=== PATIENT | male | born 1980 | race Caucasian/White ===

== ENCOUNTER 2017-06-29 15:08 | Emergency (ER) | payer OTHER | END 2017-06-29 16:30 | disposition home or self-care (01) | LOC: D.ER 15:08 | DX: L03.116 Cellulitis of left lower limb (principal); L03.115 Cellulitis of right lower limb ==

== ENCOUNTER 2017-10-06 17:30 | Emergency (ER) | payer OTHER ==
[2017-10-06 17:55] LABS: APPEARANCE CLEAR (CLEAR); BILIRUBIN NEGATIVE (NEGATIVE); COLOR YELLOW (YELLOW); GLUCOSE NEGATIVE (NEGATIVE); KETONE SMALL mg/dL (NEGATIVE); NITRITE NEGATIVE (NEGATIVE); PROTEIN NEGATIVE (NEGATIVE); SPECIFIC GRAVITY 1.015 (1.005-1.020); UROBILINOGEN NORMAL (NORMAL)
[2017-10-06 17:58] LABS: BACTERIA FEW /hpf (NONE SEEN); RED CELLS - URINE 0-5 /hpf (0-5)
== END 2017-10-06 19:35 | disposition home or self-care (01) ==
LOC: D.ER 17:30 → EDBD 17:30 → D.ER 19:35
PROVIDERS: Family Medicine
DX: N39.0 Urinary tract infection, site not specified (principal); N45.1 Epididymitis

== ENCOUNTER 2017-11-29 06:29 | Emergency (ER) | payer OTHER ==
[2017-11-29 07:07] LABS: BASOPHILS 0.2 % (0-2); EOSINOPHILS 0.1 % (0-7); HEMATOCRIT 50.4 % (42.0-54.0); HEMOGLOBIN 17.7 g/dL (13.5-17.5); IMMATURE GRANULOCYTES 0.2 % (0-5); LYMPHOCYTES 18.7 % (15-50); MCH 31.1 pg (26.0-34.0); MCHC 35.1 g/dL (31.0-37.0); MCV 88.4 fL (80.0-100.0); MEAN PLATELET VOLUME 10.1 fL (7.4-10.4); MONOCYTES 13.2 % (2-11); NEUTROPHILS 67.6 % (40-80); PLATELET COUNT 300 10x3/uL (130-400); RDW 14.2 % (11.5-14.5); WBC 9.8 10x3/uL (4.8-10.8)
[2017-11-29 07:32] LABS: ALBUMIN 4.7 g/dL (3.4-5.0); ALKALINE PHOSPHATASE 50 U/L (46-116); ALT (SGPT) 94 U/L (10-68); CALC OSMOLALITY 286 mosm/kg (275-300); CALCIUM 9.5 mg/dL (8.5-10.1); CARBON DIOXIDE 26.9 mmol/L (21.0-32.0); CHLORIDE - SERUM 104 mmol/L (98-107); CREATININE - SERUM 1.2 mg/dL (0.6-1.3); GLUCOSE 125 mg/dL (74-106); POTASSIUM - SERUM 3.9 mmol/L (3.5-5.1); PROTEIN - SERUM 8.4 g/dL (6.4-8.2); SODIUM 143 mmol/L (136-145); UREA NITROGEN 15 mg/dL (7-18); eGFR NON AFRICAN AMERICAN 72 mL/min (90-120)
[2017-11-29 07:43] LABS: CKMB 4.8 U/L (0.0-3.6); CREATINE KINASE 792 UL (21-232); TROPONIN-I < 0.017 ng/mL (0.000-0.060)
== END 2017-11-29 11:43 | disposition short-term general hospital (02) ==
LOC: EDBD 06:29 → D.ER 06:29
PROVIDERS: Family Medicine
DX: F15.90 Other stimulant use, unspecified, uncomplicated (principal); F41.9 Anxiety disorder, unspecified; F23 Brief psychotic disorder

== ENCOUNTER 2017-12-20 09:26 | Emergency (ER) | payer OTHER ==
[2017-12-20 11:04] LABS: BASOPHILS 0.4 % (0-2); EOSINOPHILS 1.9 % (0-7); IMMATURE GRANULOCYTES 0.1 % (0-5); MCH 30.4 pg (26.0-34.0); MCHC 35.6 g/dL (31.0-37.0); MCV 85.4 fL (80.0-100.0); MEAN PLATELET VOLUME 9.9 fL (7.4-10.4); MONOCYTES 9.9 % (2-11); NEUTROPHILS 57.7 % (40-80); PLATELET COUNT 223 10x3/uL (130-400); RBC 5.27 10x6/uL (4.20-6.10); RDW 12.6 % (11.5-14.5)
[2017-12-20 11:07] LABS: ALBUMIN 4.2 g/dL (3.4-5.0); ALKALINE PHOSPHATASE 50 U/L (46-116); ALT (SGPT) 55 U/L (10-68); BILIRUBIN - TOTAL 1.53 mg/dL (0.2-1.3); CALC OSMOLALITY 276 mosm/kg (275-300); CALCIUM 8.6 mg/dL (8.5-10.1); CARBON DIOXIDE 23.3 mmol/L (21.0-32.0); CHLORIDE - SERUM 103 mmol/L (98-107); CREATININE - SERUM 0.9 mg/dL (0.6-1.3); GLUCOSE 103 mg/dL (74-106); POTASSIUM - SERUM 3.3 mmol/L (3.5-5.1); PROTEIN - SERUM 7.7 g/dL (6.4-8.2); SODIUM 137 mmol/L (136-145); UREA NITROGEN 20 mg/dL (7-18); eGFR NON AFRICAN AMERICAN > 90 mL/min (90-120)
[2017-12-20 11:44] LABS: APPEARANCE CLEAR (CLEAR); COLOR YELLOW (YELLOW); GLUCOSE NEGATIVE (NEGATIVE); NITRITE NEGATIVE (NEGATIVE); PROTEIN NEGATIVE (NEGATIVE); SPECIFIC GRAVITY 1.025 (1.005-1.020)
[2017-12-20 11:45] LABS: BILIRUBIN NEGATIVE (NEGATIVE); KETONE SMALL mg/dL (NEGATIVE); UROBILINOGEN NORMAL (NORMAL)
[2017-12-20 11:46] LABS: UDS - AMPHET POSITIVE QUAL (NEGATIVE); UDS - BARB NEGATIVE QUAL (NEGATIVE); UDS - BENZO POSITIVE QUAL (NEGATIVE); UDS - COCAINE POSITIVE QUAL (NEGATIVE); UDS - OPIATE NEGATIVE QUAL (NEGATIVE); UDS - PCP NEGATIVE QUAL (NEGATIVE); UDS - THC NEGATIVE QUAL (NEGATIVE)
== END 2017-12-20 13:14 | disposition short-term general hospital (02) ==
LOC: D.ER 09:26
PROVIDERS: Emergency Medicine
DX: F23 Brief psychotic disorder (principal); E05.00 Thyrotoxicosis with diffuse goiter without thyrotoxic crisis or storm; F43.10 Post-traumatic stress disorder, unspecified; X58.XXXA Exposure to other specified factors, initial encounter; Y93.89 Activity, other specified; Y92.019 Unspecified place in single-family (private) house as the place of occurrence of the external cause; F15.90 Other stimulant use, unspecified, uncomplicated

== ENCOUNTER 2018-02-02 12:35 | Observation (INO) | payer OTHER ==
[~2018-02-02] VITALS: Ht 167.6 cm; Wt 100.5 kg
--- NOTE | ~2018-02-02 | HP ---
PATIENT: JHONATAN OPRRAS MEDICAL RECORD: [id number] ACCOUNT: [id number] LOCATION:D[facility] : 78 ADMISSION DATE: 02/02/18 HISTORY AND PHYSICAL EXAMINATION DATE OF ADMISSION: 02/02/2018 HISTORY: This is a 37-year-old white male who presented to the Emergency Department with altered mental status. He reportedly is a suffering from posttraumatic stress disorder and he took some methamphetamine. He has been a meth user for years and reportedly stopped couple years ago, but fell off the wagon maybe a couple of months ago. This last overdose reportedly caused him to have flashbacks and paranoid behavior. He also took a friend's Klonopin, he states. He has involuntary movements of his body and face. He is admitted for observation. PAST MEDICAL HISTORY: Posttraumatic stress disorder. PAST SURGICAL HISTORY: None. FAMILY HISTORY: Unknown. SOCIAL HISTORY: The patient states he lives alone. DRUG ALLERGIES: None. CURRENT MEDICATIONS: None. HABITS: Former smoker ____ methamphetamine user. Denies alcohol. REVIEW OF SYSTEMS: GENERAL: No major weight changes. HEENT: No particular sinus or allergy problems. RESPIRATORY: No history of emphysema or asthma. CARDIAC: No history of coronary disease. GI: No diarrhea, constipation, or reflux. : No significant problems there. MUSCULOSKELETAL: No significant problems there. NEUROLOGIC: No seizures. No migraine headaches. PSYCH: He has posttraumatic stress disorder. He states he was last seen at the [place] months ago. PHYSICAL EXAMINATION: VITAL SIGNS: Temperature 97.6, pulse 120s, respirations 18, blood pressure 150/75. GENERAL: He is arousable and will answer questions. When he is aroused and awake, he does have involuntary movements of arms, legs, and face. HEENT: Unremarkable. NECK: Supple. HEART: Tachycardia without murmur. LUNGS: Clear. ABDOMEN: Soft, flat, nontender. EXTREMITIES: No edema. NEUROLOGIC: He is drowsy, easily awakened. When he is sleeping, he has no involuntary movements. When he is awake, he has these involuntary movements. HISTORY AND PHYSICAL [id number] JHONATAN PORRAS Urine drug screen positive for amphetamines and benzodiazepine. Urinalysis is unremarkable except specific gravity is 1.025. CBC is normal. Basic metabolic panel okay except potassium low at 3.1. Liver functions are okay. CK elevated at 1029, CK-MB barely elevated at 4.3. Alcohol level is normal. EKG: Sinus tachycardia, rate 129. ASSESSMENT: 1. Amphetamine overdose. 2. Altered mental status due to amphetamine overdose. 3. Hypokalemia. PLAN: Monitor in the ICU. Replace potassium. Give IV fluids. We will follow up next day and see how he is doing. TRANSINT:[id number] Voice Confirmation ID: [id number] DOCUMENT ID: [id number] PHUONG BARBOSA MD at 0809 CC: [id number] DICTATION DATE: 02/03/18 1135 PLATE HANGER: 02/03/18 1331 ADM IN [facility] [address] [id number]
[2018-02-02 13:30] LABS: BASOPHILS 0.3 % (0-2); EOSINOPHILS 1.1 % (0-7); HEMOGLOBIN 15.3 g/dL (13.5-17.5); IMMATURE GRANULOCYTES 0.2 % (0-5); LYMPHOCYTES 24.4 % (15-50); MCH 31.4 pg (26.0-34.0); MCHC 35.6 g/dL (31.0-37.0); MCV 88.3 fL (80.0-100.0); MEAN PLATELET VOLUME 9.4 fL (7.4-10.4); MONOCYTES 9.8 % (2-11); NEUTROPHILS 64.2 % (40-80); PLATELET COUNT 213 10x3/uL (130-400); RBC 4.87 10x6/uL (4.20-6.10); RDW 13.7 % (11.5-14.5); WBC 6.4 10x3/uL (4.8-10.8)
[2018-02-02 13:43] LABS: ALBUMIN 3.9 g/dL (3.4-5.0); ALKALINE PHOSPHATASE 50 U/L (46-116); ALT (SGPT) 61 U/L (10-68); BILIRUBIN - TOTAL 0.71 mg/dL (0.2-1.3); CALC OSMOLALITY 279 mosm/kg (275-300); CALCIUM 8.2 mg/dL (8.5-10.1); CARBON DIOXIDE 23.1 mmol/L (21.0-32.0); CHLORIDE - SERUM 103 mmol/L (98-107); CREATININE - SERUM 0.9 mg/dL (0.6-1.3); GLUCOSE 101 mg/dL (74-106); POTASSIUM - SERUM 3.1 mmol/L (3.5-5.1); PROTEIN - SERUM 7.3 g/dL (6.4-8.2); SODIUM 140 mmol/L (136-145); UREA NITROGEN 15 mg/dL (7-18); eGFR NON AFRICAN AMERICAN > 90 mL/min (90-120)
[2018-02-02 14:16] LABS: CKMB 4.3 U/L (0.0-3.6); CREATINE KINASE 1029 UL (21-232)
[2018-02-02 16:54] LABS: APPEARANCE HAZY (CLEAR); BILIRUBIN NEGATIVE (NEGATIVE); COLOR YELLOW (YELLOW); GLUCOSE NEGATIVE (NEGATIVE); KETONE SMALL mg/dL (NEGATIVE); NITRITE NEGATIVE (NEGATIVE); PROTEIN NEGATIVE (NEGATIVE); SPECIFIC GRAVITY 1.025 (1.005-1.020); UROBILINOGEN NORMAL (NORMAL)
[2018-02-02 17:18] LABS: UDS - AMPHET POSITIVE QUAL (NEGATIVE); UDS - BARB NEGATIVE QUAL (NEGATIVE); UDS - BENZO POSITIVE QUAL (NEGATIVE); UDS - COCAINE NEGATIVE QUAL (NEGATIVE); UDS - OPIATE NEGATIVE QUAL (NEGATIVE); UDS - PCP NEGATIVE QUAL (NEGATIVE); UDS - THC NEGATIVE QUAL (NEGATIVE)
[2018-02-02 19:00] VITALS: BP 122/87
[2018-02-02 19:36] VITALS: BP 116/82; Ht 167.6 cm; Wt 100.5 kg
[2018-02-02 20:00] VITALS: BP 131/97
[2018-02-02 21:00] VITALS: BP 127/91
[2018-02-02 22:00] VITALS: BP 147/96
[2018-02-02 23:00] VITALS: BP 132/85
[2018-02-03] VITALS (15 sets, daily range): BP systolic 113–160; BP diastolic 68–98
[2018-02-03 03:50] LABS: BASOPHILS 0.3 % (0-2); EOSINOPHILS 2.6 % (0-7); HEMATOCRIT 41.9 % (42.0-54.0); HEMOGLOBIN 14.6 g/dL (13.5-17.5); IMMATURE GRANULOCYTES 0.2 % (0-5); LYMPHOCYTES 36.3 % (15-50); MCH 31.1 pg (26.0-34.0); MCHC 34.8 g/dL (31.0-37.0); MCV 89.1 fL (80.0-100.0); MEAN PLATELET VOLUME 9.7 fL (7.4-10.4); MONOCYTES 11.7 % (2-11); NEUTROPHILS 48.9 % (40-80); PLATELET COUNT 203 10x3/uL (130-400); RDW 13.8 % (11.5-14.5); WBC 5.8 10x3/uL (4.8-10.8)
[2018-02-03 04:28] LABS: ALBUMIN 3.4 g/dL (3.4-5.0); ALKALINE PHOSPHATASE 43 U/L (46-116); ALT (SGPT) 51 U/L (10-68); BILIRUBIN - TOTAL 1.01 mg/dL (0.2-1.3); CALC OSMOLALITY 277 mosm/kg (275-300); CALCIUM 7.9 mg/dL (8.5-10.1); CARBON DIOXIDE 23.7 mmol/L (21.0-32.0); CHLORIDE - SERUM 105 mmol/L (98-107); CREATININE - SERUM 0.8 mg/dL (0.6-1.3); GLUCOSE 89 mg/dL (74-106); MAGNESIUM - SERUM 2.3 mg/dL (1.8-2.4); PROTEIN - SERUM 6.6 g/dL (6.4-8.2); SODIUM 140 mmol/L (136-145); UREA NITROGEN 13 mg/dL (7-18); eGFR NON AFRICAN AMERICAN > 90 mL/min (90-120)
[2018-02-03 04:35] LABS: CREATINE KINASE 398 UL (21-232)
[2018-02-03 04:36] LABS: CKMB 2.7 U/L (0.0-3.6)
[2018-02-04 04:05] VITALS: BP 122/71
[2018-02-04 07:54] VITALS: BP 133/82
== END 2018-02-04 09:46 | disposition home or self-care (01) ==
LOC: D.ER 12:35 → OBSVTIME 14:31 → D.EDHOLD 14:31 → D.ICU 17:14 → D.MS 02-03 13:18
PROVIDERS: Family Medicine
DX: T43.621A Poisoning by amphetamines, accidental (unintentional), initial encounter (principal); R41.82 Altered mental status, unspecified; F43.10 Post-traumatic stress disorder, unspecified; E87.6 Hypokalemia; Z87.891 Personal history of nicotine dependence; F15.90 Other stimulant use, unspecified, uncomplicated

== ENCOUNTER 2018-02-16 10:23 | Emergency (ER) | payer OTHER ==
[2018-02-02 19:36] VITALS: BMI 35.7
[2018-02-16 10:58] LABS: BASOPHILS 0.2 % (0-2); EOSINOPHILS 0.7 % (0-7); HEMATOCRIT 49.4 % (42.0-54.0); HEMOGLOBIN 17.6 g/dL (13.5-17.5); IMMATURE GRANULOCYTES 0.1 % (0-5); LYMPHOCYTES 30.3 % (15-50); MCH 31.7 pg (26.0-34.0); MCHC 35.6 g/dL (31.0-37.0); MEAN PLATELET VOLUME 9.7 fL (7.4-10.4); MONOCYTES 10.2 % (2-11); NEUTROPHILS 58.5 % (40-80); PLATELET COUNT 292 10x3/uL (130-400); RBC 5.55 10x6/uL (4.20-6.10); RDW 13.7 % (11.5-14.5)
[2018-02-16 11:26] LABS: ALBUMIN 4.4 g/dL (3.4-5.0); ALKALINE PHOSPHATASE 68 U/L (46-116); ALT (SGPT) 58 U/L (10-68); BILIRUBIN - TOTAL 0.96 mg/dL (0.2-1.3); CALC OSMOLALITY 278 mosm/kg (275-300); CALCIUM 9.3 mg/dL (8.5-10.1); CARBON DIOXIDE 23.6 mmol/L (21.0-32.0); CHLORIDE - SERUM 101 mmol/L (98-107); GLUCOSE 118 mg/dL (74-106); POTASSIUM - SERUM 3.4 mmol/L (3.5-5.1); PROTEIN - SERUM 8.5 g/dL (6.4-8.2); SODIUM 139 mmol/L (136-145); UREA NITROGEN 13 mg/dL (7-18); eGFR NON AFRICAN AMERICAN 89 mL/min (90-120)
[2018-02-16 11:37] LABS: CKMB 1.5 U/L (0.0-3.6); CREATINE KINASE 177 UL (21-232); TROPONIN-I < 0.017 ng/mL (0.000-0.060)
[2018-02-16 12:16] LABS: UDS - AMPHET POSITIVE QUAL (NEGATIVE); UDS - BARB NEGATIVE QUAL (NEGATIVE); UDS - BENZO POSITIVE QUAL (NEGATIVE); UDS - COCAINE NEGATIVE QUAL (NEGATIVE); UDS - OPIATE NEGATIVE QUAL (NEGATIVE); UDS - PCP NEGATIVE QUAL (NEGATIVE); UDS - THC NEGATIVE QUAL (NEGATIVE)
[2018-02-16 12:24] LABS: APPEARANCE CLEAR (CLEAR); COLOR YELLOW (YELLOW); NITRITE NEGATIVE (NEGATIVE); PROTEIN NEGATIVE (NEGATIVE); SPECIFIC GRAVITY 1.025 (1.005-1.020)
[2018-02-16 12:25] LABS: BILIRUBIN NEGATIVE (NEGATIVE); GLUCOSE NEGATIVE (NEGATIVE); KETONE NEGATIVE (NEGATIVE); UROBILINOGEN NORMAL (NORMAL)
[2018-02-16 12:30] LABS: WHITE CELLS - URINE 0-5 /hpf (0-5)
[2018-02-16 12:31] LABS: AMORPHOUS SEDIMENT <1+ /lpf (NONE SEEN); BACTERIA MODERATE /hpf (NONE SEEN); GRANULAR CAST RARE /lpf (NONE SEEN); HYALINE CAST OCC /lpf (NONE SEEN); MUCUS <1+ /lpf (NONE SEEN)
== END 2018-02-16 15:06 | disposition short-term general hospital (02) ==
LOC: D.ER 10:23
PROVIDERS: Emergency Medicine
DX: F15.10 Other stimulant abuse, uncomplicated (principal); F23 Brief psychotic disorder; F17.200 Nicotine dependence, unspecified, uncomplicated; R00.0 Tachycardia, unspecified; I45.10 Unspecified right bundle-branch block

== ENCOUNTER 2019-05-08 21:35 | Emergency (ER) | payer OTHER ==
[2018-02-02 19:36] VITALS: BMI 35.7
== END 2019-05-08 22:15 | disposition left against medical advice (07) ==
LOC: D.ER 21:35
DX: R10.9 Unspecified abdominal pain (principal)

== ENCOUNTER 2019-09-30 08:12 | Emergency (ER) | payer OTHER ==
[~2019-09-30] VITALS: Ht 167.6 cm; Wt 70.5 kg
[2019-09-30 08:21] VITALS: Ht 167.6 cm; Wt 70.5 kg
[2019-09-30 08:50] LABS: BASOPHILS 0.4 % (0-2); EOSINOPHILS 3.1 % (0-7); HEMATOCRIT 45.8 % (42.0-54.0); HEMOGLOBIN 15.9 g/dL (13.5-17.5); IMMATURE GRANULOCYTES 0.2 % (0-5); LYMPHOCYTES 34.1 % (15-50); MCHC 34.7 g/dL (31.0-37.0); MCV 89.3 fL (80.0-100.0); MEAN PLATELET VOLUME 9.6 fL (7.4-10.4); MONOCYTES 11.4 % (2-11); NEUTROPHILS 50.8 % (40-80); RBC 5.13 10x6/uL (4.20-6.10); RDW 13.4 % (11.5-14.5); WBC 5.2 10x3/uL (4.8-10.8)
[2019-09-30 08:53] LABS: PLATELET COUNT 195 10x3/uL (130-400)
[2019-09-30 08:59] LABS: CALC OSMOLALITY 280 mosm/kg (275-300); CALCIUM 9.2 mg/dL (8.5-10.1); CARBON DIOXIDE 23.3 mmol/L (21.0-32.0); CHLORIDE - SERUM 104 mmol/L (98-107); CREATININE - SERUM 0.9 mg/dL (0.6-1.3); GLUCOSE 112 mg/dL (74-106); POTASSIUM - SERUM 4.4 mmol/L (3.5-5.1); SODIUM 140 mmol/L (136-145); UREA NITROGEN 15 mg/dL (7-18); eGFR NON AFRICAN AMERICAN > 90 mL/min (90-120)
[2019-09-30 09:13] LABS: ALBUMIN 3.7 g/dL (3.4-5.0); ALKALINE PHOSPHATASE 67 U/L (46-116); ALT (SGPT) 87 U/L (10-68); AMYLASE - SERUM 42 U/L (25-115); BILIRUBIN - TOTAL 0.58 mg/dL (0.2-1.3); LIPASE 103 U/L (73-393); PROTEIN - SERUM 7.3 g/dL (6.4-8.2)
[2019-09-30 09:35] LABS: APPEARANCE CLEAR (CLEAR); BILIRUBIN NEGATIVE (NEGATIVE); COLOR YELLOW (YELLOW); GLUCOSE NEGATIVE (NEGATIVE); KETONE NEGATIVE (NEGATIVE); NITRITE NEGATIVE (NEGATIVE); PROTEIN NEGATIVE (NEGATIVE); SPECIFIC GRAVITY 1.015 (1.005-1.020); UROBILINOGEN NORMAL (NORMAL)
[2019-09-30] MEDS ORDERED: IBUPROFEN800 MG PO (11:06)
[2019-09-30] MEDS ORDERED: ACETAMINOPHEN500 M1 PO (11:06)
[2019-09-30] MEDS ORDERED: CYCLOBENZAPRINE10 MG PO (11:06)
[2019-09-30 11:21] VITALS: BP 135/74
== END 2019-09-30 11:21 | disposition home or self-care (01) ==
LOC: D.ER 08:12
PROVIDERS: Family Medicine
DX: R10.9 Unspecified abdominal pain (principal)

== ENCOUNTER 2020-02-23 05:05 | Emergency (ER) | payer OTHER ==
[~2020-02-23] VITALS: Ht 167.6 cm; Wt 90.9 kg
[~2020-02-23 05:05] MED LIST: ACETAMINOPHEN500 M1 PO; CYCLOBENZAPRINE10 MG PO; IBUPROFEN800 MG PO
[2020-02-23 05:08] VITALS: Ht 167.6 cm; Wt 90.9 kg
[2020-02-23 05:34] LABS: BASOPHILS 0.1 % (0-2); EOSINOPHILS 0 % (0-7); HEMATOCRIT 47.4 % (42.0-54.0); IMMATURE GRANULOCYTES 0.1 % (0-5); LYMPHOCYTES 10.6 % (15-50); MCH 30.3 pg (26.0-34.0); MCHC 33.8 g/dL (31.0-37.0); MCV 89.8 fL (80.0-100.0); MEAN PLATELET VOLUME 9.6 fL (7.4-10.4); MONOCYTES 8.6 % (2-11); NEUTROPHILS 80.6 % (40-80); RBC 5.28 10x6/uL (4.20-6.10); RDW 13.2 % (11.5-14.5)
[2020-02-23 05:38] LABS: PLATELET COUNT 265 10x3/uL (130-400)
[2020-02-23 05:42] LABS: UDS - AMPHET POSITIVE QUAL (NEGATIVE); UDS - BARB NEGATIVE QUAL (NEGATIVE); UDS - BENZO NEGATIVE QUAL (NEGATIVE); UDS - COCAINE NEGATIVE QUAL (NEGATIVE); UDS - OPIATE NEGATIVE QUAL (NEGATIVE); UDS - PCP NEGATIVE QUAL (NEGATIVE); UDS - THC NEGATIVE QUAL (NEGATIVE)
[2020-02-23 05:43] LABS: BILIRUBIN NEGATIVE (NEGATIVE); GLUCOSE NEGATIVE (NEGATIVE); KETONE MODERATE mg/dL (NEGATIVE); NITRITE NEGATIVE (NEGATIVE); UROBILINOGEN NORMAL (NORMAL)
[2020-02-23 05:45] LABS: ANION GAP 16.1 mmol/L (8-16); CARBON DIOXIDE 25.5 mmol/L (21.0-32.0); CREATININE - SERUM 1.2 mg/dL (0.6-1.3); POTASSIUM - SERUM 3.6 mmol/L (3.5-5.1)
[2020-02-23 05:45] LABS: BACTERIA FEW /hpf (NEGATIVE); EPITHELIAL CELLS 0-5 /hpf (0-5); RED CELLS - URINE 0-5 /hpf (0-5); WHITE CELLS - URINE 0-5 /hpf (NEGATIVE)
[2020-02-23 05:51] LABS: ALBUMIN 4.9 g/dL (3.4-5.0); BILIRUBIN - TOTAL 1.16 mg/dL (0.2-1.3); MAGNESIUM - SERUM 2.1 mg/dL (1.8-2.4); PROTEIN - SERUM 8.7 g/dL (6.4-8.2)
[2020-02-23] MEDS ORDERED: KLONOPIN1 MG PO (07:20)
[2020-02-23] MEDS ORDERED: CARDIZEM60 MG PO (07:20)
[2020-02-23 07:45] VITALS: BP 133/88
== END 2020-02-23 07:42 | disposition home or self-care (01) ==
LOC: D.ER 05:05
PROVIDERS: Emergency Medicine
DX: F15.10 Other stimulant abuse, uncomplicated (principal); F41.1 Generalized anxiety disorder; F43.0 Acute stress reaction; F43.12 Post-traumatic stress disorder, chronic; I10 Essential (primary) hypertension; R00.0 Tachycardia, unspecified

== ENCOUNTER 2020-03-02 15:18 | Emergency (ER) | payer OTHER ==
[~2020-03-02] VITALS: Ht 167.6 cm; Wt 97.7 kg
[~2020-03-02 15:18] MED LIST changes: +CARDIZEM60 MG PO; +KLONOPIN1 MG PO
[2020-03-02 15:25] VITALS: Ht 167.6 cm; Wt 97.7 kg
[2020-03-02 16:16] LABS: BASOPHILS 0.4 % (0-2); EOSINOPHILS 1.8 % (0-7); HEMATOCRIT 44.1 % (42.0-54.0); IMMATURE GRANULOCYTES 0.1 % (0-5); LYMPHOCYTES 25.9 % (15-50); MCH 30.1 pg (26.0-34.0); MCV 88.6 fL (80.0-100.0); MEAN PLATELET VOLUME 9.6 fL (7.4-10.4); MONOCYTES 13.8 % (2-11); PLATELET COUNT 247 10x3/uL (130-400); RBC 4.98 10x6/uL (4.20-6.10); WBC 6.8 10x3/uL (4.8-10.8)
[2020-03-02 16:34] LABS: CALC OSMOLALITY 277 mosm/kg (275-300); CALCIUM 8.9 mg/dL (8.5-10.1); CARBON DIOXIDE 26.1 mmol/L (21.0-32.0); CHLORIDE - SERUM 104 mmol/L (98-107); GLUCOSE 92 mg/dL (74-106); SODIUM 140 mmol/L (136-145); UREA NITROGEN 9 mg/dL (7-18); eGFR NON AFRICAN AMERICAN 88 mL/min (90-120)
[2020-03-02 16:38] LABS: APTT 29.4 SECONDS (22.8-39.4); INR 1.09 (0.85-1.17)
[2020-03-02 16:39] LABS: D-DIMER-QUANTITATIVE < 0.27 ug/mLFEU (0.20-0.54)
[2020-03-02 16:49] LABS: ALKALINE PHOSPHATASE 70 U/L (30-120); ALT (SGPT) 35 U/L (10-68); BILIRUBIN - TOTAL 1.22 mg/dL (0.2-1.3); CKMB 1.1 U/L (0.0-3.6); CREATINE KINASE 175 UL (21-232); MAGNESIUM - SERUM 2.1 mg/dL (1.8-2.4); PROTEIN - SERUM 7.4 g/dL (6.4-8.2)
[2020-03-02 16:54] LABS: TROPONIN-I < 0.017 ng/mL (0.000-0.060)
[2020-03-02 17:27] LABS: ALBUMIN 3.9 g/dL (3.4-5.0)
[2020-03-02 17:28] LABS: BILIRUBIN NEGATIVE (NEGATIVE); GLUCOSE NEGATIVE (NEGATIVE); KETONE MODERATE mg/dL (NEGATIVE); NITRITE NEGATIVE (NEGATIVE); UROBILINOGEN NORMAL (NORMAL)
[2020-03-02 17:40] LABS: UDS - AMPHET POSITIVE QUAL (NEGATIVE); UDS - BARB NEGATIVE QUAL (NEGATIVE); UDS - BENZO POSITIVE QUAL (NEGATIVE); UDS - COCAINE NEGATIVE QUAL (NEGATIVE); UDS - OPIATE POSITIVE QUAL (NEGATIVE); UDS - PCP NEGATIVE QUAL (NEGATIVE); UDS - THC NEGATIVE QUAL (NEGATIVE)
[2020-03-02 18:17] VITALS: BP 118/74
== END 2020-03-02 18:19 | disposition home or self-care (01) ==
LOC: D.ER 15:18
PROVIDERS: Family Medicine
DX: F41.9 Anxiety disorder, unspecified (principal); E87.6 Hypokalemia; F15.10 Other stimulant abuse, uncomplicated; R00.2 Palpitations; R07.9 Chest pain, unspecified